=== PATIENT | male | born 2000 | race Caucasian/White ===

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

== ENCOUNTER 2022-09-18 01:08 | Emergency (ER) | payer OTHER ==
[2022-09-18 01:16] VITALS: BP 123/57; PULSE 78; RESP 20; TEMP 98.8; BMI 23.1
[2022-09-18] MEDS ORDERED: IBUPROFEN 600 MG TABLET (FP) PO ONE ×2 (01:34→01:43)
[2022-09-18] MEDS ORDERED: CLINDAMYCIN HCL 300 MG CAPSULE PO ONE (01:34)
[2022-09-18] MEDS ORDERED: CLINDAMYCIN HCL 150 MG CAPSULE (FP) ONE (01:44)
== END 2022-09-18 01:48 | disposition home or self-care (01) ==
LOC: JER 01:08
DX: M70.31 Other bursitis of elbow, right elbow (principal); L03.113 Cellulitis of right upper limb; V00.141A Fall from scooter (nonmotorized), initial encounter
CPT/HCPCS: 73070-TC-RT-FY; 99283-25